=== PATIENT | male | born 1955 | race African-American/Black ===

== ENCOUNTER 2019-06-11 11:21 | Emergency (ER) | payer OTHER | END 2019-06-11 13:10 | disposition home or self-care (01) | LOC: JER 11:21 ==

== ENCOUNTER 2020-05-07 09:39 | Inpatient (IN) | payer OTHER ==
--- NOTE | 2020-05-07 09:54 | PDOC ---
History of Present Illness - General Chief Complaint: Pain Stated Complaint: FOOT PAIN Time Seen by Provider: 05/07/20 09:53 History Source: Patient - History of Present Illness Initial Comments: 05/07/20 10:32 [facility] dialysis center in [place] MWF HD via AVF on LUE Cold R foot Minimal pulses on duplex bilaterally, worse in R foot Past History - Medical History Allergies/Adverse Reactions: Allergies Allergy/AdvReac Type Severity Reaction Status Date / Time No Known Allergies Allergy Verified 05/07/20 10:00 Home Medications: Ambulatory Orders Acetaminophen [Tylenol] 2 tab PO Q6H 05/07/20 Albuterol Sulfate [Proventil Hfa] 1 inh IH PRN 05/07/20 Aspirin [ASA -] 81 mg PO DAILY 05/07/20 Atorvastatin Ca [Lipitor] 40 mg PO HS 05/07/20 Carvedilol [Coreg -] 6.25 mg PO BID 05/07/20 Ibuprofen [Motrin Ib] 3 tab PO Q8H 05/07/20 Meloxicam [Mobic] 15 mg PO DAILY 05/07/20 Nicotine [Nicotine Patch 14mg/24 hr] 1 each TD DAILY 05/07/20 Sacubitril/Valsartan [Entresto 24 mg-26 mg Tablet] 1 each PO BID 05/07/20 Sevelamer HCl [Renagel] 800 mg PO TID 05/07/20 COPD: No Dialysis: Yes (M-W-F) HTN: Yes - Psycho-Social/Smoking History Smoking Status: Yes Smoking History: Current every day smoker Have you smoked in the past 12 months: Yes Number of Cigarettes Smoked Daily: 4 'Breaking Loose' booklet given: 06/20/18
[2020-05-07] MEDS ORDERED: ACETAMINOPHEN 1000 MG/100 ML VIAL (NON FORMULARY) IVPB ONE (10:44)
[2020-05-07] MEDS ORDERED: ACETAMINOPHEN INJECTION 100 ML IVPB ONE (11:11)
[2020-05-07 11:20] LABS: BASO % 1.3 % (0-2.0); EOS % 9.7 % (0-4.5); HEMATOCRIT 29.1 % (35.4-49); HEMOGLOBIN 9.3 GM/dL (11.7-16.9); LYMPH % 10.8 % (8-40); MCH 28.3 pg (25.7-33.7); MEAN CELL VOLUME 88.3 fl (80-96); MEAN PLT VOLUME 8.5 fl (7.5-11.1); MONO % 8.8 % (3.8-10.2); NEUT % 69.4 % (42.8-82.8); PLATELET COUNT 258 K/MM3 (134-434); RDW 18.2 % (11.9-15.9); WHITE BLOOD COUNT 6.9 K/mm3 (4.0-10.0)
--- NOTE | 2020-05-07 11:25 | PDOC ---
Documentation entered by Mounika Ramos SCRIBE, acting as scribe for Christy Wesley MD. Christy Wesley MD: This documentation has been prepared by the scribe, Mounika Ramos SCRIBE, under my direction and personally reviewed by me in its entirety. I confirm that the documentation accurately reflects all work, treatment, procedures, and medical decision making performed by me. Attending Attestation - Resident Resident Name: QamartoroJus - ED Attending Attestation I have performed the following: I have examined & evaluated the patient, The case was reviewed & discussed with the resident, I agree w/resident's findings & plan, Exceptions are as noted - HPI HPI: 05/07/20 10:07 Patient is a 65 year old male with a significant past medical history of hypertension, end-stage renal disease, and dialysis (MWF), who presents to the ED with right foot pain x3 months. He receives dialysis on MWF at [facility] in [place]. Allergies: NKDA - Physicial Exam PE: GENERAL: Awake, alert, and fully oriented, in no acute distress HEAD: No signs of trauma EYES: PERRLA, EOMI, sclera anicteric, conjunctiva clear ENT: Auricles normal inspection, hearing grossly normal, nares patent, oropharynx clear without exudates. Moist mucosa NECK: Normal ROM, supple, no lymphadenopathy, JVD, or masses LUNGS: Breath sounds equal, clear to auscultation bilaterally. No wheezes, and no crackles HEART: Regular rate and rhythm, normal S1 and S2, no murmurs, rubs or gallops ABDOMEN: Soft, nontender, normoactive bowel sounds. No guarding, no rebound. No masses EXTREMITIES: R foot cooler than L foot, cool to palpation. No palpable pulses to feet B/L. R foot dusky in appearance. Normal range of motion, no edema. No clubbing or cyanosis. No cords, erythema, or tenderness NEUROLOGICAL: Cranial nerves II through XII grossly intact. Normal speech. Motor and sensation intact SKIN: Warm, dry, normal turgor, no rashes or lesions noted except as above. - Medical Decision Making Pt with pain to R foot for months, now presenting with cool dusky foot. Will arrange for CTA to r/o arterial occlusion. Will contact renal for HD. Discharge - Discharge Information Problems reviewed: Yes Clinical Impression/Diagnosis: Atherosclerosis of extremity with rest pain Qualifiers: Peripheral atherosclerosis location: lower extremity Peripheral atherosclerosis artery type: [place] artery Laterality: right Qualified Code(s): I70.221 - Atherosclerosis of [place] arteries of extremities with rest pain, right leg - Follow up/Referral - Patient Discharge Instructions - Post Discharge Activity
[2020-05-07 11:49] LABS: INR 1.01 (0.83-1.09); PROTHROMBIN TIME (PATIENT) 11.9 SEC (9.7-13.0)
[2020-05-07 11:51] LABS: ACTIVATED PTT 26.2 SECONDS (25.2-36.5); ALBUMIN 3.2 g/dl (3.4-5.0); BILIRUBIN,TOTAL 0.6 mg/dL (0.2-1); BLOOD UREA NITROGEN 48.1 mg/dL (7-18); CALCIUM 9.1 mg/dL (8.5-10.1); CREATININE 6.8 mg/dL (0.55-1.3); POTASSIUM 3.7 mmol/L (3.5-5.1); TOT PROT 6.8 g/dl (6.4-8.2)
[2020-05-07] MEDS ORDERED: SODIUM CHLORIDE 250 ML IV PRN (14:01)
[2020-05-07 14:26] LABS: ANISOCYTOSIS 1+; MACROCYTOSIS 0; OVALOCYTE 1+; PLATELET ESTIMATE NORMAL
--- NOTE | 2020-05-07 15:27 | CON.NEP ---
Consult Consult Specialty:: nephrology - History of Present Illness Chief Complaint: foot pain History of Present Illness: This is a 65 yearold man with history of ESRD, htn, dm who presents with foot pain. he was evaluated already by a surgeon who suggested amputation. He had a CTA and is therefore admitted for further evaluation and hemodialysis. Has no other complaints. He had COVID19 in February. - History Source History Provided By: Patient Limitations to Obtaining History: No Limitations - Past Medical History Cardio/Vascular: Yes: HTN Renal/: Yes: Renal Failure (esrd on hd) - Alcohol/Substance Use Hx Alcohol Use: Yes - Smoking History Smoking history: Current every day smoker Have you smoked in the past 12 months: Yes Aproximately how many cigarettes per day: 4 Home Medications - Allergies Allergies/Adverse Reactions: Allergies Allergy/AdvReac Type Severity Reaction Status Date / Time No Known Allergies Allergy Verified 05/07/20 10:00 - Home Medications Home Medications: Ambulatory Orders Acetaminophen [Tylenol] 2 tab PO Q6H 05/07/20 Albuterol Sulfate [Proventil Hfa] 1 inh IH PRN 05/07/20 Aspirin [ASA -] 81 mg PO DAILY 05/07/20 Atorvastatin Ca [Lipitor] 40 mg PO HS 05/07/20 Carvedilol [Coreg -] 6.25 mg PO BID 05/07/20 Ibuprofen [Motrin Ib] 3 tab PO Q8H 05/07/20 Meloxicam [Mobic] 15 mg PO DAILY 05/07/20 Nicotine [Nicotine Patch 14mg/24 hr] 1 each TD DAILY 05/07/20 Sacubitril/Valsartan [Entresto 24 mg-26 mg Tablet] 1 each PO BID 05/07/20 Sevelamer HCl [Renagel] 800 mg PO TID 05/07/20 Review of Systems - Review of Systems Constitutional: reports: No Symptoms Eyes: reports: No Symptoms HENT: reports: No Symptoms Neck: reports: No Symptoms Cardiovascular: reports: No Symptoms Respiratory: reports: No Symptoms Gastrointestinal: reports: No Symptoms Genitourinary: reports: No Symptoms Musculoskeletal: reports: Extremity Pain Integumentary: reports: No Symptoms Neurological: reports: No Symptoms Endocrine: reports: No Symptoms Hematology/Lymphatic: reports: No Symptoms Psychiatric: reports: No Symptoms Nephrology Consult - Height Height: 5 ft 8 in - Weight Weight: 143 lb - BMI Body Mass Index (BMI): 21.7 - Lab Results CBC,BMP: CBC, BMP 05/07/20 11:00 05/07/20 11:00 Anion Gap: Anion Gap Anion Gap 9 MMOL/L (8-16) 05/07/20 11:00 - Imaging Chest X-ray: Image Reviewed - Physical Examination Vital Signs: Vital Signs Temperature 97.8 F 05/07/20 14:30 Pulse Rate 61 05/07/20 14:30 Respiratory Rate 18 05/07/20 14:30 Blood Pressure 149/62 05/07/20 14:30 O2 Sat by Pulse Oximetry (%) 98 05/07/20 14:30 Constitutional: Yes: Well Nourished, No Distress Eyes: Yes: Conjunctiva Clear HENT: Yes: Atraumatic, Normocephalic Neck: Yes: Supple, Trachea Midline Cardiovascular: Yes: Regular Rate and Rhythm Respiratory: Yes: Regular, CTA Bilaterally Gastrointestinal: Yes: Normal Bowel Sounds Renal/: No: Bladder Distention Access for Hemodialysis: AV Fistula Musculoskeletal: Yes: WNL Extremities: Yes: Other (absent pulse in right DP) Peripheral Pulses WNL: No Wound/Incision: Yes: Clean/Dry Neurological: Yes: Alert, Oriented Psychiatric: Yes: Alert, Oriented Assessment/Plan esrd PAD HTN H/O covid 19 PLAN will dialyze today-orders written will be seen by vascular will need antiplatelet agents MV
--- NOTE | 2020-05-07 15:41 | CONSULT ---
Consult Consult Specialty:: Vascular Surgery - History of Present Illness History of Present Illness: 65 year old former smoker, ESRD on HD with worsening pain in his right foot for several months. He came to ER today because no one was helping him at his nursing facility. He has constant pain in his foot and 5th toe. No wounds. He states he can walk several blocks. - History Source History Provided By: Patient - Past Medical History Cardio/Vascular: Yes: HTN Renal/: Yes: Renal Failure (esrd on hd) - Alcohol/Substance Use Hx Alcohol Use: Yes - Smoking History Smoking history: Current every day smoker Have you smoked in the past 12 months: Yes Aproximately how many cigarettes per day: 4 Home Medications - Allergies Allergies/Adverse Reactions: Allergies Allergy/AdvReac Type Severity Reaction Status Date / Time No Known Allergies Allergy Verified 05/07/20 10:00 - Home Medications Home Medications: Ambulatory Orders Acetaminophen [Tylenol] 2 tab PO Q6H 05/07/20 Albuterol Sulfate [Proventil Hfa] 1 inh IH PRN 05/07/20 Aspirin [ASA -] 81 mg PO DAILY 05/07/20 Atorvastatin Ca [Lipitor] 40 mg PO HS 05/07/20 Carvedilol [Coreg -] 6.25 mg PO BID 05/07/20 Ibuprofen [Motrin Ib] 3 tab PO Q8H 05/07/20 Meloxicam [Mobic] 15 mg PO DAILY 05/07/20 Nicotine [Nicotine Patch 14mg/24 hr] 1 each TD DAILY 05/07/20 Sacubitril/Valsartan [Entresto 24 mg-26 mg Tablet] 1 each PO BID 05/07/20 Sevelamer HCl [Renagel] 800 mg PO TID 05/07/20 Physical Exam Vital Signs: Vital Signs Temperature 97.8 F 05/07/20 14:55 Pulse Rate 72 05/07/20 15:00 Respiratory Rate 18 05/07/20 15:00 Blood Pressure 132/62 05/07/20 15:00 O2 Sat by Pulse Oximetry (%) 98 05/07/20 14:30 Constitutional: Yes: No Distress Eyes: Yes: WNL HENT: Yes: WNL Neck: Yes: WNL, Supple Cardiovascular: Yes: Regular Rate and Rhythm Respiratory: Yes: Regular Gastrointestinal: Yes: Soft Extremities: Yes: Cool (right foot). No: Cyanosis Edema: No Peripheral Pulses WNL: No (No palpable pedal pulses) Labs: CBC, BMP 05/07/20 11:00 05/07/20 11:00 Imaging - Results Cat Scan: Image Reviewed (CTA shows calcific plaque throughout. Stenosis of proxilam right iliac. Severe disease of both SFA with segmental occlusion. Occlusion right popliteal and tibial calcification with runoff to foot.) Problem List - Problems (1) Atherosclerosis of extremity with rest pain Assessment/Plan: Severe arterial disease with ischemic rest pain in right foot. No signs of impending gangrene. Emergency procedure not indicatied. Patient will be scheduled for outpatient angiography. He will call if symptoms worsen. Problems reviewed: Yes Code(s): I70.229 - ATHSCL [place] ARTERIES OF EXTRM W REST PAIN, UNSP EXTREMITY Qualifiers: Peripheral atherosclerosis location: lower extremity Peripheral atherosclerosis artery type: [place] artery Laterality: right Qualified Code(s): I70.221 - Atherosclerosis of [place] arteries of extremities with rest pain, right leg
--- NOTE | 2020-05-07 16:38 | HP ---
Admitting History and Physical - Admission Chief Complaint: Right foot vivian for 3 months History of Present Illness: 65M with history of ESRD on HD HTN HLD PAD/PVD who presents to ER with right f oot and leg pain for last 3 months. Patient states it is as rest ad while walig. Able to walk several blocks. Some ubness and tinglig in RLE toes. Pain in 2nd and 5th toes in addition for dorsal part of foot. Had CTA of bl LE done which shows calcific plaque throughout. Stenosis of proximal right iliac. Severe disease of both SFA with segmental occlusion. Occlusion right popliteal and tibial calcification with runoff to foot. Being dialyzed now. usually gets M/W/F. Got dialyzed yesterday. Seen by nephrology and vascular surgery. Per vascular patient can f/u as outpt and acute intervention at this time. Can walk several blocks. Denies nausea vomiting fever chilla chest pain or SOB. History Source: Patient, Medical Record Limitations to Obtaining History: Clinical Condition - Past Medical History Cardiovascular: Yes: HTN Renal/: Yes: Renal Failure (esrd on hd) - Smoking History Smoking history: Current every day smoker Have you smoked in the past 12 months: Yes Aproximately how many cigarettes per day: 4 - Alcohol/Substance Use Hx Alcohol Use: Yes Home Medications - Allergies Allergies/Adverse Reactions: Allergies Allergy/AdvReac Type Severity Reaction Status Date / Time No Known Allergies Allergy Verified 05/07/20 10:00 - Home Medications Home Medications: Ambulatory Orders Acetaminophen [Tylenol] 2 tab PO Q6H 05/07/20 Albuterol Sulfate [Proventil Hfa] 1 inh IH PRN 05/07/20 Aspirin [ASA -] 81 mg PO DAILY 05/07/20 Atorvastatin Ca [Lipitor] 40 mg PO HS 05/07/20 Carvedilol [Coreg -] 6.25 mg PO BID 05/07/20 Ibuprofen [Motrin Ib] 3 tab PO Q8H 05/07/20 Meloxicam [Mobic] 15 mg PO DAILY 05/07/20 Nicotine [Nicotine Patch 14mg/24 hr] 1 each TD DAILY 05/07/20 Sacubitril/Valsartan [Entresto 24 mg-26 mg Tablet] 1 each PO BID 05/07/20 Sevelamer HCl [Renagel] 800 mg PO TID 05/07/20 Family Medical History Family History: Denies Review of Systems - Review of Systems Constitutional: reports: No Symptoms Eyes: reports: No Symptoms HENT: reports: No Symptoms Neck: reports: No Symptoms Cardiovascular: reports: No Symptoms Respiratory: reports: No Symptoms Gastrointestinal: reports: No Symptoms Genitourinary: reports: No Symptoms Breasts: reports: No Symptoms Reported Musculoskeletal: reports: Extremity Pain (RLE calf all the way to toes for past 3 months) Integumentary: reports: No Symptoms Neurological: reports: No Symptoms Endocrine: reports: No Symptoms Hematology/Lymphatic: reports: No Symptoms Psychiatric: reports: No Symptoms Physical Examination Vital Signs: Vital Signs Temperature 97.8 F 05/07/20 14:55 Pulse Rate 70 05/07/20 15:30 Respiratory Rate 18 05/07/20 15:30 Blood Pressure 144/67 05/07/20 15:30 O2 Sat by Pulse Oximetry (%) 98 05/07/20 14:30 Constitutional: Yes: No Distress Eyes: Yes: EOM Intact HENT: Yes: Atraumatic Neck: Yes: Supple Cardiovascular: Yes: Regular Rate and Rhythm Respiratory: Yes: CTA Bilaterally Gastrointestinal: Yes: Normal Bowel Sounds, Soft Extremities: Yes: Calf Tenderness (mild), Cool (right foot and toes when compared to left), Other (tender toes. no cyanosis) Edema: No Neurological: Yes: Alert, Oriented ...Motor Strength: WNL Psychiatric: Yes: Alert, Oriented Labs: CBC, BMP 05/07/20 11:00 05/07/20 11:00 Imaging - Results Cat Scan: Report Reviewed (CTA shows calcific plaque throughout. Stenosis of proxilam right iliac. Severe disease of both SFA with segmental occlusion. Occlu vik right popliteal and tibial calcification with runoff to foot.), Image Reviewed Assessment/Plan 65M with ESRD on HD M/W/F HTN HLD CAD PVD/PAD presets to hospital with RLE pain at rest ad claudication. Do not suspect critical limb ischemia. CTA shows calcific plaque throughout. Stenosis of proximal right iliac. Severe disease of both SFA with segmental occlusion. Occlusion right popliteal and tibial calcification with runoff to foot. Problem List: ESRD on HD stenosis of bilateral SFA. Popliteal and tibial calcification severe arterial disease CAD HTN HLD rest pain claudication Plan: Admit to inpatient services vascular consult noted and appreciated can f/u as outpt nephrology consult getting dialysis now restart home meds including antihypertensives and statin Pain control DVT PPx repeat labs in AM Visit type - Emergency Visit Emergency Visit: Yes ED Registration Date: 05/07/20 Care time: The patient presented to the Emergency Department on the above date and was hospitalized for further evaluation of their emergent condition. - New Patient This patient is new to me today: Yes Date on this admission: 05/07/20 - Critical Care Critical Care patient: No
[2020-05-07 20:01] VITALS: BMI 20.3
[2020-05-07] MEDS: NICOTINE 14 MG/24 HOURS TOPICAL PATCH TD SCH (20:28)
[2020-05-07] MEDS ORDERED: oxyCODONE HCL 5 MG TABLET PO ONE (20:30)
[2020-05-07] MEDS ORDERED: ACETAMINOPHEN 325 MG TABLET (FP) PO ONE (20:30)
[2020-05-07] MEDS: SEVELAMER CARBONATE 800 MG TAB (FP) PO SCH (20:33)
[2020-05-07] MEDS: CARVEDILOL 6.25 MG TABLET (FP) PO SCH (22:08)
[2020-05-07] MEDS: ATORVASTATIN CA 40 MG TABLET (FP) PO SCH (22:08)
[2020-05-07] MEDS: HEPARIN NA (PORCINE) 5,000 UNITS/ML 1ML VIAL SQ SCH (22:08)
[2020-05-07] MEDS: SACUBITRIL/VALSARTAN 24 MG-26 MG TABLET PO SCH (22:08)
[2020-05-08] MEDS ORDERED: oxyCODONE HCL 5 MG TABLET PO ONE (03:00)
[2020-05-08] MEDS: HEPARIN NA (PORCINE) 5,000 UNITS/ML 1ML VIAL SQ SCH ×3 (06:32→22:40)
--- NOTE | 2020-05-08 08:08 | PN ---
Progress Note, Physician History of Present Illness: 65M with history of ESRD on HD HTN HLD PAD/PVD who presents to ED with right foot and leg pain for last 3 months. COVID PCR positive in February - Current Medication List Current Medications: Active Medications Aspirin (Asa -) 81 mg PO DAILY [facility] Atorvastatin Calcium (Lipitor -) 40 mg PO HS [facility] Last Admin: 05/07/20 22:08 Dose: 40 mg Documented by: Carvedilol (Coreg -) 6.25 mg PO BID [facility] Last Admin: 05/07/20 22:08 Dose: 6.25 mg Documented by: Heparin Sodium (Porcine) (Heparin -) 5,000 unit SQ TID [facility] Last Admin: 05/08/20 06:32 Dose: 5,000 unit Documented by: Sodium Chloride (Normal Saline -) 250 mls @ 3,000 mls/hr IV PRN PRN PRN Reason: Hypotension during Dialysis Stop: 05/08/20 14:01 Nicotine (Nicoderm Patch -) 14 mg TD DAILY [facility] Last Admin: 05/07/20 20:28 Dose: 14 mg Documented by: Sacubitril/Valsartan (Entresto 24 Mg-26 Mg Tablet) 1 tab PO BID [facility] Last Admin: 05/07/20 22:08 Dose: 1 tab Documented by: Sevelamer Carbonate (Renvela -) 800 mg PO TIDCM [facility] Last Admin: 05/07/20 20:33 Dose: Not Given Documented by: - Objective Vital Signs: Vital Signs Temperature 97.8 F 05/08/20 04:00 Pulse Rate 80 05/08/20 04:00 Respiratory Rate 18 05/08/20 04:00 Blood Pressure 153/76 05/08/20 04:00 O2 Sat by Pulse Oximetry (%) 99 05/07/20 22:40 Labs: CBC, BMP 05/07/20 11:00 05/07/20 11:00 INR, PTT INR 1.01 (0.83-1.09) 05/07/20 11:00
[2020-05-08] MEDS: SEVELAMER CARBONATE 800 MG TAB (FP) PO SCH ×3 (08:46→17:02)
[2020-05-08] MEDS: oxyCODONE HCL 5 MG TABLET PO PRN ×2 (08:48→17:01)
[2020-05-08] MEDS ORDERED: PT OWN MED DRAWER 7, Y5N ONE (08:59)
[2020-05-08 09:02] LABS: HEMATOCRIT 30.1 % (35.4-49); HEMOGLOBIN 9.5 GM/dL (11.7-16.9); MCH 27.9 pg (25.7-33.7); MCHC 31.5 g/dl (32.0-35.9); MEAN CELL VOLUME 88.6 fl (80-96); MEAN PLT VOLUME 8.7 fl (7.5-11.1); PLATELET COUNT 285 K/MM3 (134-434); RDW 18.6 % (11.9-15.9); WHITE BLOOD COUNT 5.7 K/mm3 (4.0-10.0)
[2020-05-08 09:07] LABS: INR 1.07 (0.83-1.09); PROTHROMBIN TIME (PATIENT) 12.6 SEC (9.7-13.0)
[2020-05-08] MEDS: NICOTINE 14 MG/24 HOURS TOPICAL PATCH TD SCH (09:37)
[2020-05-08] MEDS: SACUBITRIL/VALSARTAN 24 MG-26 MG TABLET PO SCH ×2 (09:37→22:40)
[2020-05-08] MEDS: ASPIRIN 81 MG CHEWABLE TABLETS PO SCH (09:38)
[2020-05-08] MEDS: CARVEDILOL 6.25 MG TABLET (FP) PO SCH ×2 (09:38→22:40)
[2020-05-08 09:40] LABS: ALBUMIN 3.5 g/dl (3.4-5.0); BILIRUBIN,TOTAL 0.6 mg/dL (0.2-1); CALCIUM 9.8 mg/dL (8.5-10.1); CREATININE 5.6 mg/dL (0.55-1.3); MAGNESIUM 2.2 mg/dL (1.8-2.4); PHOSPHOROUS 4.2 mg/dL (2.5-4.9); POTASSIUM 4.2 mmol/L (3.5-5.1)
--- NOTE | 2020-05-08 13:39 | DS ---
Physical Exam: SUBJECTIVE: Patient seen. Refused examination. OBJECTIVE: Vital Signs Period Temp Pulse Resp BP Sys/Hernandez Pulse Ox Last 24 Hr 97.8 F-97.9 F 61-80 16-18 130-166/62-83 98-100 PHYSICAL EXAM GENERAL: The patient is awake, alert, and fully oriented, in no acute distress. HEAD: Normal with no signs of trauma. EYES: sclera anicteric, conjunctiva clear. PSYCH:refusing exam LABS Laboratory Results - last 24 hr 05/07/20 05/07/20 05/08/20 11:00 14:00 08:15 WBC 5.7 RBC 3.40 L Hgb 9.5 L Hct 30.1 L MCV 88.6 MCH 27.9 MCHC 31.5 L RDW 18.6 H Plt Count 285 MPV 8.7 Neutrophils % (Manual) 65.0 Band Neutrophils % 0.0 Lymphocytes % (Manual) 13.6 Monocytes % (Manual) 10 Eosinophils % (Manual) 10.7 H Basophils % (Manual) 1.0 Myelocytes % (Man) 0 Promyelocytes % (Man) 0 Blast Cells % (Manual) 0 Nucleated RBC % 0 Metamyelocytes 0 Hypochromia 0 Platelet Estimate Normal Polychromasia 1+ Poikilocytosis 1+ Anisocytosis 1+ Microcytosis 1+ Macrocytosis 0 Spherocytes 1+ Ovalocytes 1+ Acanthocytes (Spur) 1+ PT with INR INR Sodium Potassium Chloride Carbon Dioxide Anion Gap BUN Creatinine Est GFR (CKD-EPI)AfAm Est GFR (CKD-EPI)NonAf Random Glucose Calcium Phosphorus Magnesium Total Bilirubin AST ALT Alkaline Phosphatase Troponin I 0.10 H Total Protein Albumin 05/08/20 05/08/20 08:15 08:15 WBC RBC Hgb Hct MCV MCH MCHC RDW Plt Count MPV Neutrophils % (Manual) Band Neutrophils % Lymphocytes % (Manual) Monocytes % (Manual) Eosinophils % (Manual) Basophils % (Manual) Myelocytes % (Man) Promyelocytes % (Man) Blast Cells % (Manual) Nucleated RBC % Metamyelocytes Hypochromia Platelet Estimate Polychromasia Poikilocytosis Anisocytosis Microcytosis Macrocytosis Spherocytes Ovalocytes Acanthocytes (Spur) PT with INR 12.60 INR 1.07 Sodium 139 Potassium 4.2 Chloride 101 Carbon Dioxide 31 Anion Gap 8 BUN 34.0 H Creatinine 5.6 H Est GFR (CKD-EPI)AfAm 11.27 Est GFR (CKD-EPI)NonAf 9.73 Random Glucose 83 Calcium 9.8 Phosphorus 4.2 Magnesium 2.2 Total Bilirubin 0.6 AST 21 ALT 26 Alkaline Phosphatase 61 Troponin I Total Protein 7.0 Albumin 3.5 HOSPITAL COURSE: Date of Admission:05/07/20 Date of Discharge: 05/08/20 Seen in bed. Refused full examination. States he wants to sleep. Seen by Vascular-Dr Sanchez. CTA done and no surgical intervention at this time. Can follow as outpatient. HD done yesterday. Further HD at home dialysis center. Spoke to SW and pt [facility]. continue all homes medication. Medically cleared for discharge to intermediate. Minutes to complete discharge: 35 Discharge Summary Problems reviewed: Yes Reason For Visit: ISCHEMIA OF LOWER EXTREMITY; DIALYSIS PATIENT Current Active Problems Atherosclerosis of extremity with rest pain (Acute) - Instructions Diet, Activity, Other Instructions: DISCHARGE YOUR VISIT You came to the hospital because MEDICATIONS Please continue to take your home medications as prescribed. There was XXXXX changes DIET Continue your home diet ADDITIONAL CARE Please make an appointment to see your primary care provider, [phone] 1 week from today. ADDITIONAL INFORMATION Please call 911 or come directly to the emergency department if you experience unusual headache, vision change, shortness of breath, chest pain, numbness, tingling, loss of alertness/awareness, loss of function, unusual bleeding or any alarming symptoms. Thank you for allowing me to care for you. Vishal Patel, ACNP, [facility] [phone] Referrals: Carlos Enrique Sierra DO [Staff Physician] - James Sanchez MD [Staff Physician] - Disposition: HOME - Home Medications Comprehensive Discharge Medication List: Ambulatory Orders Acetaminophen [Tylenol] 2 tab PO Q6H 05/07/20 Albuterol Sulfate [Proventil Hfa] 1 inh IH PRN 05/07/20 Aspirin [ASA -] 81 mg PO DAILY 05/07/20 Atorvastatin Ca [Lipitor] 40 mg PO HS 05/07/20 Carvedilol [Coreg -] 6.25 mg PO BID 05/07/20 Ibuprofen [Motrin Ib] 3 tab PO Q8H 05/07/20 Meloxicam [Mobic] 15 mg PO DAILY 05/07/20 Nicotine [Nicotine Patch 14mg/24 hr] 1 each TD DAILY 05/07/20 Sacubitril/Valsartan [Entresto 24 mg-26 mg Tablet] 1 each PO BID 05/07/20 Sevelamer HCl [Renagel] 800 mg PO TID 05/07/20 Docusate Sodium [Colace -] 300 mg PO HS capsule 05/08/20 Problem List - Problems (1) Prophylactic measure Code(s): Z29.9 - ENCOUNTER FOR PROPHYLACTIC MEASURES, UNSPECIFIED (2) Homelessness Code(s): Z59.0 - HOMELESSNESS (3) ESRD (end stage renal disease) Code(s): N18.6 - END STAGE RENAL DISEASE (4) Hemodialysis patient Code(s): Z99.2 - DEPENDENCE ON RENAL DIALYSIS (5) CKD (chronic kidney disease) requiring chronic dialysis Code(s): N18.6 - END STAGE RENAL DISEASE; Z99.2 - DEPENDENCE ON RENAL DIALYSIS (6) Atherosclerosis of extremity with rest pain Code(s): I70.229 - ATHSCL [place] ARTERIES OF EXTRM W REST PAIN, UNSP EXTREMITY Qualifiers: Peripheral atherosclerosis location: lower extremity Peripheral atherosclerosis artery type: [place] artery Laterality: right Qualified Code (s): I70.221 - Atherosclerosis of [place] arteries of extremities with rest pain, right leg (7) Person under investigation for COVID-19 Code(s): Z20.828 - CONTACT W AND EXPOSURE TO OTH VIRAL COMMUNICABLE DISEASES (8) HTN (hypertension) Code(s): I10 - ESSENTIAL (PRIMARY) HYPERTENSION (9) HLD (hyperlipidemia) Code(s): E78.5 - HYPERLIPIDEMIA, UNSPECIFIED (10) Arterial vascular disease Code(s): I70.90 - UNSPECIFIED ATHEROSCLEROSIS (11) Claudication Code(s): I73.9 - PERIPHERAL VASCULAR DISEASE, UNSPECIFIED This patient is new to me today: Yes Date on this admission: 05/08/20 Emergency Visit: Yes ED Registration Date: 05/07/20 Care time: The patient presented to the Emergency Department on the above date and was hospitalized for further evaluation of their emergent condition. Critical Care patient: No - Discharge Referral Referred to [facility] Med P.C.: No
--- NOTE | 2020-05-08 14:06 | EKG ---
Test Reason : Blood Pressure : / mmHG Vent. Rate : 069 BPM Atrial Rate : 069 BPM P-R Int : 174 ms QRS Dur : 116 ms QT Int : 436 ms P-R-T Axes : 074 056 062 degrees QTc Int : 467 ms NORMAL SINUS RHYTHM LEFT VENTRICULAR HYPERTROPHY WITH QRS WIDENING ABNORMAL ECG WHEN COMPARED WITH ECG OF 27-NOV-2013 09:00, NO SIGNIFICANT CHANGE WAS FOUND Confirmed by FELISHA RICHARDSON MD ([id number]) on 05/08/2020 2:06:22 PM Referred By: Confirmed By:FELISHA RICHARDSON MD
[2020-05-08] MEDS ORDERED: DOCUSATE SODIUM 100 MG CAPSULE (FP) PO SCH (22:00)
[2020-05-08] MEDS: ATORVASTATIN CA 40 MG TABLET (FP) PO SCH (22:40)
[2020-05-09] MEDS: oxyCODONE HCL 5 MG TABLET PO PRN ×2 (06:06→14:11)
[2020-05-09] MEDS: HEPARIN NA (PORCINE) 5,000 UNITS/ML 1ML VIAL SQ SCH ×2 (06:07→14:12)
--- NOTE | 2020-05-09 08:44 | PN ---
Progress Note (short form) - Note Progress Note: Patient agreeable to be discharged today back to SNF. Appreciate social work [facility]'s assistance Problem List - Problems (1) Prophylactic measure Code(s): Z29.9 - ENCOUNTER FOR PROPHYLACTIC MEASURES, UNSPECIFIED (2) Homelessness Code(s): Z59.0 - HOMELESSNESS (3) ESRD (end stage renal disease) Code(s): N18.6 - END STAGE RENAL DISEASE (4) Hemodialysis patient Code(s): Z99.2 - DEPENDENCE ON RENAL DIALYSIS (5) CKD (chronic kidney disease) requiring chronic dialysis Code(s): N18.6 - END STAGE RENAL DISEASE; Z99.2 - DEPENDENCE ON RENAL DIALYSIS (6) Atherosclerosis of extremity with rest pain Code(s): I70.229 - ATHSCL [place] ARTERIES OF EXTRM W REST PAIN, UNSP EXTREMITY Qualifiers: Peripheral atherosclerosis location: lower extremity Peripheral atherosclerosis artery type: squaxin artery Laterality: right Qualified Code(s): I70.221 - Atherosclerosis of squaxin arteries of extremities with rest pain, right leg (7) Person under investigation for COVID-19 Code(s): Z20.828 - CONTACT W AND EXPOSURE TO OTH VIRAL COMMUNICABLE DISEASES (8) HTN (hypertension) Code(s): I10 - ESSENTIAL (PRIMARY) HYPERTENSION (9) HLD (hyperlipidemia) Code(s): E78.5 - HYPERLIPIDEMIA, UNSPECIFIED (10) Arterial vascular disease Code(s): I70.90 - UNSPECIFIED ATHEROSCLEROSIS (11) Claudication Code(s): I73.9 - PERIPHERAL VASCULAR DISEASE, UNSPECIFIED Visit type - Emergency Visit Emergency Visit: Yes ED Registration Date: 05/07/20 Care time: The patient presented to the Emergency Department on the above date and was hospitalized for further evaluation of their emergent condition. - New Patient This patient is new to me today: No - Critical Care Critical Care patient: No - Discharge Referral Referred to [facility] No
[2020-05-09] MEDS ORDERED: PT OWN MED DRAWER 7, Y5N ONE (09:29)
[2020-05-09] MEDS: ASPIRIN 81 MG CHEWABLE TABLETS PO SCH (09:33)
[2020-05-09] MEDS: SEVELAMER CARBONATE 800 MG TAB (FP) PO SCH ×2 (09:33→14:11)
[2020-05-09] MEDS: SACUBITRIL/VALSARTAN 24 MG-26 MG TABLET PO SCH (09:34)
[2020-05-09] MEDS: CARVEDILOL 6.25 MG TABLET (FP) PO SCH (09:34)
[2020-05-09] MEDS: NICOTINE 14 MG/24 HOURS TOPICAL PATCH TD SCH (09:34)
--- NOTE | 2020-05-09 10:58 | PN ---
Progress Note (short form) - Note Progress Note: RENAL pt seen and examined still has pain in foot but feels well otherwise Last Vital Signs Temp Pulse Resp BP Pulse Ox 97.7 F 70 18 91/62 100 05/09/20 06:00 05/09/20 06:00 05/09/20 06:00 05/09/20 06:00 05/08/20 21:00 lungs clear cvs s1s2 rr abd soft ext no edema, no cyanosis noted neuro a+ox3 CBC, BMP 05/08/20 08:15 05/08/20 08:15 IMPRESSION ESRD HTN PAD PLAN will dialyze tomorrow if still in hospital he is doing well will be seen by vascular as outpatient MV
[2020-05-09 19:48] VITALS: BP 146/79; PULSE 80; TEMP 97.9
== END 2020-05-09 14:38 | disposition home or self-care (01) | DRG 299 ==
LOC: JER 09:39 → JERBED 11:18 → J5S 18:55
PROVIDERS: ADMIT Internal Medicine; ATTEND Nurse Practitioner Acute Care
DX: I70.221 Atherosclerosis of native arteries of extremities with rest pain, right leg (principal); I12.0 Hypertensive chronic kidney disease with stage 5 chronic kidney disease or end stage renal disease; N18.6 End stage renal disease; I25.10 Atherosclerotic heart disease of native coronary artery without angina pectoris; F17.210 Nicotine dependence, cigarettes, uncomplicated; Z59.0 Homelessness; Z99.2 Dependence on renal dialysis
CPT/HCPCS: 36415; 71045-TC-FY; 75635-TC; 80053; 82550; 82553; 83735; 84100; 84484; 85025; 85027; 85610; 85730; 86803; 86850; 86900; 86901; 87340; 93005; 93010; 97116-GP; 97161-GP; 99285-25; J0131; J1644; Q9967; U0003